=== PATIENT | male | born 2000 | race Caucasian/White ===

== ENCOUNTER 2022-05-27 10:55 | Emergency (ER) | payer MEDICAID ==
[~2022-05-27] VITALS: Ht 172.7 cm; Wt 68.5 kg
[2022-05-27 11:01] VITALS: BP_SYST 131
[2022-05-27 11:31] LABS: BASOPHILS % (AUTO) 0.6 % (0.0-2.0); EOSINOPHILS % (AUTO) 0.2 % (0.0-4.0); HEMATOCRIT 47.3 % (36-54); LYMPHOCYTES # (AUTO) 0.9 K/uL (1.0-5.5); LYMPHOCYTES % (AUTO) 12.9 % (20.5-51.5); MEAN CORPUSCULAR HEMOGLOBIN 31 pg (27-31); MEAN CORPUSCULAR HGB CONC 34 % (32-36); MEAN CORPUSCULAR VOLUME 91 fL (79.0-98.0); MONOCYTES # (AUTO) 0.5 K/uL (0.0-1.0); MONOCYTES % (AUTO) 7.3 % (1.7-9.3); NEUTROPHILS # (AUTO) 5.5 K/uL (1.8-7.7); PLATELET COUNT (AUTO) 247 K/uL (130-430); RED BLOOD CELL COUNT(AUTO) 5.21 MIL/uL (4.2-6.2); RED CELL DISTRIBUTION WIDTH 13.1 % (9.0-15.0)
--- NOTE | 2022-05-27 11:49 | NUR ---
Patient to ER bed 08 to gown for evaluation. Side rails up.
--- NOTE | 2022-05-27 11:52 | NUR ---
Report given to Juan M WATT
[2022-05-27 12:13] LABS: CALCIUM 10.1 mg/dL (8.4-11.0); CREATININE 1.02 mg/dL (0.55-1.30)
[2022-05-27] MEDS ORDERED: FAMOTIDINE 20 MG TABLET PO ONE (12:15)
[2022-05-27] MEDS ORDERED: MAG-AL HYDROX/SIMETH 30 ML UDC PO ONE (12:15)
--- NOTE | 2022-05-27 12:20 | NUR ---
PT BIB MOM, AWAKE AND ALERT AOX4. NO SOB OR DISTRESS. PT C/O ABDOMINAL PAIN FOR PAST X6 DAYS. PT DENIES N/V, AND PAIN. PT DENIES DIAHREA. PT HAS LOST APPETIT FOR PAST 6 DAYS.
--- NOTE | 2022-05-27 12:21 | NUR ---
MD DR HAMM AT BEDSIDE
[2022-05-27 12:22] LABS: ALBUMIN 4.9 g/dL (3.4-4.8); TOTAL BILIRUBIN 0.6 mg/dL (0.0-1.0)
[2022-05-27] MEDS ORDERED: SIME80TA15 PO ×2 (14:01→17:23)
--- NOTE | 2022-05-27 15:26 | NUR ---
Patient given written and verbal discharge instructions and verbalizes understanding. ER MD discussed with patient the results and treatment provided. Patient in stable condition. ID arm band removed. IV catheter removed intact and dressing applied, no active bleeding. Rx of MYLICON given. Patient educated on pain management and to follow up with PMD. Pain Scale 0/10. Opportunity for questions provided and answered. Medication side effect fact sheet provided.
[2022-05-27 17:46] VITALS: BP_SYST 133
== END 2022-05-27 15:26 | disposition home or self-care (01) ==
LOC: SED 10:55
DX: R10.13 Epigastric pain (principal); R63.0 Anorexia; Z79.899 Other long term (current) drug therapy
CPT/HCPCS: 36415; 80053; 81002; 83690; 85025; 99283